=== PATIENT | female | born 2000 | race Caucasian/White ===

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

== ENCOUNTER → 2022-01-04 | Outpatient (CLI) | payer BC ==
--- NOTE | 2022-01-04 17:29 | P.PN ---
Subjective DATE: 01/04/2022 TELEMEDICINE FOLLOW UP VISIT. Telemedicine appointment have been done for follow-up patient with possible narcolepsy. Previously multiple sleep latency test short mean sleep latency 7.1 minutes with 3 sleep onset REM periods. About 2 months ago patient was started on treatment with the Adderall 5 mg in the morning and early afternoon. Patient feels very minimal effect from that dose of Adderall. No any side effects. I discussed with patient plan to increase his dose of Adderall to 10 mg twice a day. . MEDICATIONS:1. Adderall 5 mg twice a day 2. Pantoprazole 3. control pills Impressions: 1. Narcolepsy 2. History of headaches. 3. History of sinusitis. Plan: 1. Patient will continue treatment with Adderall, dose will be increased to 10 mg at 8 AM and 1 PM 2. Sleep hygiene with regular time in bed for at least 8 hours. 3. Daytime naps permitted 4. Precautions related to driving. No driving if feel any sleepiness. Patient is aware about civil and criminal liability for unsafe driving, promised to follow recommendations. 5. Follow up visit in 1 months or earlier if patient has any problems. Thank you very much for allowing me to participate in the management of your patient. Roberto Hannah MD, PhD, FAASM. Diplomat of [place] Board of Sleep Medicine, Sleep Medicine Board by [employer] Board of Internal Medicine Fire Equipment Repairer Inspector of [facility] [place]
== END ==
LOC: SLEEP 17:14
PROVIDERS: ATTEND Internal Medicine
DX: G47.33 Obstructive sleep apnea (adult) (pediatric) (principal); G47.419 Narcolepsy without cataplexy; Z86.69 Personal history of other diseases of the nervous system and sense organs; Z87.09 Personal history of other diseases of the respiratory system

== ENCOUNTER → 2022-08-23 | Outpatient (CLI) | payer BC ==
--- NOTE | 2022-08-23 16:52 | P.PN ---
Subjective DATE: 08/23/2022 FOLLOW UP VISIT. Patient returned to sleep center for follow-up visit related to treatment of significant excessive daytime sleepiness secondary to narcolepsy. Presently patient is on treatment with Adderall 10 mg twice a day. Patient feels better but she still feels sleepiness sometimes during the day. [place] Sleepiness Scale today is slightly increased to 13 . MEDICATIONS:1. Adderall 10 mg twice a day 2. Altavera During physical exam: GENERAL: A pleasant patient without any distress. VITAL SIGNS: BP 150/88, HR 87, RR 12 , weight 132.8, temperature 98.2, oxygen saturation at room air 100% . HEENT: PERRLA, EOMI. NECK: Supple. No JVD. LUNGS: Clear to percussion and to auscultation. Good air exchange. No wheezing or rhonchi. HEART: S1, S2 regular. ABDOMEN: Soft and nontender. EXTREMITIES: No clubbing or cyanosis. MEDICAL DELIVERY DRIVER: Awake, alert, and oriented x3. No focal deficit. Impressions: 1. Narcolepsy 2. History of sinusitis. 3. History of headaches. Plan: 1. Patient will continue treatment with Adderall 10 mg. Dose will be increased to 3 tablets a day. 2. Sleep hygiene with regular time in bed for at least 8 hours. 3. Daytime naps permitted 4. Precautions related to driving. No driving if feel any sleepiness. Patient is aware about civil and criminal liability for unsafe driving, promised to follow recommendations. 5. Follow up visit in 4-6 months or earlier if patient has any problems. Thank you very much for allowing me to participate in the management of your patient. Roberto Hannah MD, PhD, FAASM. Diplomat of [place] [employer] of Sleep Medicine, Sleep Medicine Board by [place] [employer] of Internal Medicine Judo Teacher of [facility] [place]
== END ==
LOC: 3 N SLEEP 16:11
PROVIDERS: ATTEND Internal Medicine
DX: G47.419 Narcolepsy without cataplexy (principal); J01.80 Other acute sinusitis; Z86.69 Personal history of other diseases of the nervous system and sense organs
CPT/HCPCS: 99212

== ENCOUNTER → 2023-02-19 | Outpatient (CLI) | payer BC ==
--- NOTE | 2023-02-19 16:49 | P.PN ---
Subjective DATE: 02/19/2023 FOLLOW UP VISIT. Patient returned to sleep center for follow-up visit related to treatment of significant excessive daytime sleepiness secondary to narcolepsy. Presently patient is on treatment with Adderall 15 mg twice a day. With this regimen after taking medication patient feels better but only for about 1-2 hours and then feels sleepiness again. No any side effects of medication. . [place] sleepiness scale is increased to 13. MEDICATIONS:1. Adderall 15 mg twice a day 2. Altavera During physical exam: GENERAL: A pleasant patient without any distress. VITAL SIGNS: BP 139/82, HR 82, RR 12 , weight 143.6, temperature 98.1, oxygen saturation at room air 99% . HEENT: PERRLA, EOMI. NECK: Supple. No JVD. LUNGS: Clear to percussion and to auscultation. Good air exchange. No wheezing or rhonchi. HEART: S1, S2 regular. ABDOMEN: Soft and nontender. EXTREMITIES: No clubbing or cyanosis. CUFF SETTER OVERLOCK: Awake, alert, and oriented x3. No focal deficit. Impressions: 1. Narcolepsy 2. History of sinusitis. 3. History of headaches. Plan: 1. Patient will continue treatment with Adderall dose will be increased to 20 mg twice a day. 2. Sleep hygiene with regular time in bed for at least 8 hours. 3. Daytime naps permitted 4. Precautions related to driving. No driving if feel any sleepiness. Patient is aware about civil and criminal liability for unsafe driving, promised to follow recommendations. 5. Follow up visit in 2 months or earlier if patient has any problems. Thank you very much for allowing me to participate in the management of your patient. Roberto Hannah MD, PhD, FAASM. Diplomat of [place] Board of Sleep Medicine, Sleep Medicine Board by [place] Board of Internal Medicine Bingo Checker of [facility] [place]
== END ==
LOC: 3 N SLEEP 15:34
PROVIDERS: ATTEND Internal Medicine
DX: G47.419 Narcolepsy without cataplexy (principal); J32.9 Chronic sinusitis, unspecified; Z86.69 Personal history of other diseases of the nervous system and sense organs
CPT/HCPCS: 99212

== ENCOUNTER → 2023-05-02 | Outpatient (CLI) | payer BC ==
--- NOTE | 2023-05-02 11:28 | P.PN ---
Subjective DATE: Nh 05/02/2023 FOLLOW UP VISIT. Patient returned to sleep center for follow-up visit related to treatment of significant excessive daytime sleepiness secondary to narcolepsy. Presently patient is on treatment with Adderall 20 mg up to 2 times a day.. This regimen patient alertness is on control, but after taking medication patient has no appetite and has episodes on during conversation with other people she doesn't want to listen them and just talk. Previously on the dose of Adderall 15 mg there was no side effects, but medication or only for about 1-1/2 hours, which was not enough. . [place] sleepiness scale is 14. MEDICATIONS:1. Adderall 20 mg twice a day 2. Altavera with control pills During physical exam: GENERAL: A pleasant patient without any distress. VITAL SIGNS: BP 122/85, HR 88, RR 16, weight 138, temperature 98.2, oxygen saturation at room air 100%. HEENT: PERRLA, EOMI. NECK: Supple. No JVD. LUNGS: Clear to percussion and to auscultation. Good air exchange. No wheezing or rhonchi. HEART: S1, S2 regular. ABDOMEN: Soft and nontender. EXTREMITIES: No clubbing or cyanosis. EXHIBIT TECHNICIAN: Awake, alert, and oriented x3. No focal deficit. Impressions: 1. Narcolepsy 2. History of sinusitis. 3. History of headaches. Plan: 1. Patient will continue treatment with Adderall extended release 15 mg once a day. 2. Sleep hygiene with regular time in bed for at least 8 hours. 3. Daytime naps permitted 4. Precautions related to driving. No driving if feel any sleepiness. Patient is aware about civil and criminal liability for unsafe driving, promised to follow recommendations. 5. Follow up visit in 1 months or earlier if patient has any problems. Thank you very much for allowing me to participate in the management of your patient. Roberto Hannah MD, PhD, FAASM. Diplomat of [place] Board of Sleep Medicine, Sleep Medicine Board by [place] Board of Internal Medicine Munitions Worker of [facility] [place]
== END ==
LOC: 3 N SLEEP 10:36
PROVIDERS: ATTEND Internal Medicine
DX: G47.419 Narcolepsy without cataplexy (principal); Z87.09 Personal history of other diseases of the respiratory system; Z86.69 Personal history of other diseases of the nervous system and sense organs

== ENCOUNTER → 2023-06-06 | Outpatient (CLI) | payer BC ==
--- NOTE | 2023-06-06 17:49 | P.PN ---
Subjective DATE: 06/06/2023 TELEMEDICINE FOLLOW UP VISIT. Telemedicine follow-up appointment was done for follow-up patient with significant excessive daytime sleepiness secondary to narcolepsy. Presently patient is in [facility], which is far from location of [facility]. History of possible side effects while patient take regular Adderall 20 mg twice a day with the losing appetite and talking without paying attention to other people. Medication was changed to extended release Adderall 15 mg. Patient is using Adderall 15 mg extended release once a day for 1 month. With this medication patient does not have any side effects, but feels sleepiness during the day. MEDICATIONS: 1. Adderall 15 mg extended release once a day 2. Altavera control pills. Impressions: 1. Narcolepsy 2. History of sinusitis. 3. History of headaches. Plan: 1. Patient will continue treatment with Adderall extended release, dose will be increased to 20 mg once a day. 2. Sleep hygiene with regular time in bed for at least 8 hours. 3. Daytime naps permitted 4. Precautions related to driving. No driving if feel any sleepiness. Patient is aware about civil and criminal liability for unsafe driving, promised to follow recommendations. 5. Follow up visit in 1-2 months or earlier if patient has any problems. Thank you very much for allowing me to participate in the management of your patient. Roberto Hannah MD, PhD, FAASM. Diplomat of [place] Board of Sleep Medicine, Sleep Medicine Board by [place] Board of Internal Medicine Rate Setter of [facility] [place]
== END ==
LOC: 3 N SLEEP 17:22
PROVIDERS: ATTEND Internal Medicine
DX: G47.419 Narcolepsy without cataplexy (principal); Z86.69 Personal history of other diseases of the nervous system and sense organs; Z87.09 Personal history of other diseases of the respiratory system
CPT/HCPCS: 99212

== ENCOUNTER → 2023-08-08 | Outpatient (CLI) | payer BC ==
--- NOTE | 2023-08-24 22:52 | CE ---
CARDIAC ELECTROPHYSIOLOGY REPORT STUDY: 7 days event monitor. Referring physician not listed. INDICATIONS: Rule out cardiac arrhythmia. FINDINGS: The patient was monitored for 7 days. The baseline rhythm appeared to be sinus mechanism. The patient did have multiple PACs with a PAC percent of only 1%. No PVCs noted. No significant sinus pause or sinus arrest. No diary was attached CONCLUSION: 1. Sinus rhythm as a baseline mechanism. 2. Rare PACs noted. 3. No PVCs noted. 4. No sinus pause or sinus arrest. 5. No SVT or atrial fibrillation. 6. No diary was attached to the study. MMODL / IJN: [id number] /
== END | disposition home or self-care (01) ==
LOC: RADECHMAIN 07:31
PROVIDERS: ATTEND Family Medicine
DX: R00.2 Palpitations (principal)
CPT/HCPCS: 93270

== ENCOUNTER → 2024-08-14 | Outpatient (CLI) | payer BC ==
--- NOTE | 2024-08-14 08:02 | US ---
EXAMINATION TYPE: US gallbladder DATE OF EXAM: 08/14/2024 COMPARISON: MD 2018 CLINICAL INDICATION: Female, 24 years old with history of R10.11 RIGHT UPPER QUADRANT PAIN; RUQ pain TECHNIQUE: Grayscale and color Doppler imaging of the right upper quadrant. FINDINGS: EXAM MEASUREMENTS: Liver Length: 16.3 cm Gallbladder Wall: 0.21 cm CBD: 0.56 cm, color Doppler imaging was utilized to isolate the common bile duct for measurement. Right Kidney: 10.5 x 6.3 x 4.2 cm TILLER MAN NOTES: Exam is limited due to gas Pancreas: *Not well seen Liver: *Hyperechoic area seen right lobe: 1.8 x 1.8 x 1.3 cm. Gallbladder: Appears anechoic Evidence for sonographic Long's sign: No CBD: Measures upper limits Right Kidney: No hydronephrosis or masses seen IMPRESSION: 1. No evidence of acute process. 2. Hyperechoic lesion in the liver which is indeterminate but likely benign in the absence of risk f actors given patient's age such as a hemangioma. Consider MRI liver mass protocol for further charact erization. [facility], , 08/14/2024 7:59 AM
== END | disposition home or self-care (01) ==
LOC: RADUSWWP 07:06
PROVIDERS: ATTEND Surgery Plastic and Reconstructive Surgery
DX: K76.9 Liver disease, unspecified (principal)
CPT/HCPCS: 76705

== ENCOUNTER 2024-08-27 07:05 | Day surgery (SDC) | payer BC, OTHER ==
[2024-08-25 16:33] VITALS: BMI 25.6
[2024-08-27 07:56] VITALS: RESP 16; TEMP 98.4
[2024-08-27] MEDS: LACTATED RINGERS 1,000 ML IV SCH (07:57)
[2024-08-27] MEDS: LIDOCAINE 1% (10MG/ML) FOR IV START INTRADERMA STA (07:57)
[2024-08-27] MEDS: IV FLUID CONTINUATION 1,000 ML IV ONE (07:58)
[2024-08-27] MEDS ORDERED: PROPOFOL 10 MG/ML 20 ML VIAL IV ONE (08:25)
[2024-08-27] MEDS ORDERED: LIDOCAINE 2% (PF) 20 MG/ML 5 ML VIAL ONE (08:25)
--- NOTE | 2024-08-27 08:34 | P.GSHP ---
History of Present Illness H&P Date: 08/27/24 CHIEF COMPLAINT: GERD and dysphagia HISTORY OF PRESENT ILLNESS: The patient is a 24-year-old female who presents reports gastroesophageal reflux disease and dysphagia. Upper endoscopy was offered for further evaluation and management. PAST MEDICAL HISTORY: Please see list. PAST SURGICAL HISTORY: Please see list. MEDICATIONS: Please see list. ALLERGIES: Please see list. SOCIAL HISTORY: No illicit drug use FAMILY HISTORY: No reports of Crohn disease or ulcerative colitis. REVIEW OF ORGAN SYSTEMS: CONSTITUTIONAL: No reports of fevers or chills. GI: Denies any blood in stools or constipation. PHYSICAL EXAM: VITAL SIGNS: Stable GENERAL: Well-developed and pleasant in no acute distress. HEENT: No scleral icterus. Extraocular movements grossly intact. Moist buccal mucosa. NECK: Supple without lymphadenopathy. CHEST: Unlabored respirations. Equal bilateral excursions. CARDIOVASCULAR: Regular rate and rhythm. Distal 2+ pulses. ABDOMEN: Soft, nondistended. MUSCULOSKELETAL: No clubbing, cyanosis, or edema. ASSESSMENT: 1. Gastroesophageal reflux disease 2. Dysphagia PLAN: 1. Recommend proceeding with an upper endoscopy Past Medical History Past Medical History: GERD/Reflux, Neurologic Disorder Additional Past Medical History / Comment(s): MIGRAINES. NARCOLEPSY History of Any Multi-Drug Resistant Organisms: None Reported Past Surgical History: Tonsillectomy Additional Past Surgical History / Comment(s): wisdom teeth Past Anesthesia/Blood Transfusion Reactions: No Reported Reaction Smoking Status: Never smoker - Past Family History Mother History Unknown: Yes Family Medical History: No Reported History Medications and Allergies Home Medications Medication Instructions Recorded Confirmed Type Baclofen 10 mg PO HS 08/25/24 08/25/24 History Lisdexamfetamine Dimesylate 40 mg PO QAM 08/25/24 08/25/24 History [Vyvanse] Allergies Allergy/AdvReac Type Severity Reaction Status Date / Time No Known Allergies Allergy Verified 08/25/24 16:21 Surgical - Exam Vital Signs Temp Pulse Resp BP Pulse Ox 98.4 F 74 16 135/86 100 08/27/24 07:54 08/27/24 07:54 08/27/24 07:54 08/27/24 07:54 08/27/24 07:54
--- NOTE | 2024-08-27 09:01 | P.PCN ---
Date of Procedure: 08/27/24 Description of Procedure: PREOPERATIVE DIAGNOSIS: Gastroesophageal reflux disease. Nausea Dysphagia POSTOPERATIVE DIAGNOSIS: Gastroesophageal reflux disease. Gastritis. OPERATION: Esophagogastroduodenoscopy with cold forceps biopsies along esophagus, antrum and duodenum SURGEON: Leonie Troy MD ANESTHESIA: MAC. INDICATIONS: The patient is a 24-year-old female who presents with nausea, dysphagia and reflux disease. Benefits and risks of the procedure were described. Informed consent was obtained. DESCRIPTION: The patient was brought into the endoscopy suite and laid in the left lateral decubitus position. An Olympus gastroscope was passed along the posterior oropharynx down to the distal esophagus where the squamocolumnar junction was encountered at 35 cm from the incisors. The stomach was entered and no bile reflux was found. Additional findings are listed below. Biopsies with cold forceps were obtained of the antrum. The first through third portion of the duodenum was examined. Retroflexion of the scope confirmed Hill grade 2 lower esophageal valve. The squamocolumnar junction demonstrated LA grade B erosive esophagitis. The stomach was desufflated. The patient tolerated the procedure well. FINDINGS: Squamocolumnar junction 35 cm from the incisors. Diaphragmatic hiatus at 35 cm. Hill grade 2 lower esophageal valve. LA grade B erosive esophagitis. Biopsies obtained Biopsies obtained of the duodenum. Chronic gastritis with biopsies obtained. RECOMMENDATIONS: Upper endoscopy as needed. Plan - Discharge Summary Discharge Rx Participant: No New Discharge Prescriptions: New Omeprazole [PriLOSEC] 40 mg PO DAILY #14 cap Continue Lisdexamfetamine Dimesylate [Vyvanse] 40 mg PO QAM Baclofen 10 mg PO HS Discharge Medication List Baclofen 10 mg PO HS 08/25/24 [History] Lisdexamfetamine Dimesylate [Vyvanse] 40 mg PO QAM 08/25/24 [History] Omeprazole [PriLOSEC] 40 mg PO DAILY #14 cap 08/27/24 [Rx] Follow up Appointment(s)/Referral(s): Leonie Troy MD [STAFF PHYSICIAN] - 09/09/24 11:30 am Patient Instructions/Handouts: GERD (Gastroesophageal Reflux Disease) (DC) Discharge Disposition: HOME SELF-CARE
[2024-08-27 09:09] VITALS: BP 119/80; PULSE 83
== END 2024-08-27 09:39 | disposition home or self-care (01) ==
LOC: ORWHC2ENDO 07:05
PROVIDERS: ATTEND Surgery Plastic and Reconstructive Surgery
DX: K29.50 Unspecified chronic gastritis without bleeding (principal); K21.00 Gastro-esophageal reflux disease with esophagitis, without bleeding; F90.9 Attention-deficit hyperactivity disorder, unspecified type; G47.419 Narcolepsy without cataplexy; Z90.89 Acquired absence of other organs; Z79.899 Other long term (current) drug therapy
CPT/HCPCS: 81025; 88305; 43239; J2704; J2003

== ENCOUNTER → 2024-09-24 | Outpatient (CLI) | payer BC ==
--- NOTE | 2024-09-24 09:42 | NM ---
EXAMINATION TYPE: NM hepatobiliary w EF DATE OF EXAM: 09/24/2024 COMPARISON: NONE INDICATION: TECHNIQUE: After the intravenous administration of 4.76 mCi Tc 99m Mebrofenin hepatobiliary scintigra phy is performed. Images were obtained immediately post injection. FINDINGS: There is prompt uptake and excretion of radiotracer by the liver. Extrahepatic ducts are identified at 1 minutes. The gallbladder is visualized within 4 minutes. Small bowel activity is noted within a minutes. At one hour 8 ounces of oral ensure plus is given to mimic CCK and gallbladder ejection fraction is c alculated at 84 %, which is elevated. (Normal >35% and <80%.). IMPRESSION: 1. Correlate for biliary hyperkinesia. [facility], Workstation: [facility], 09/24/2024 9:40 AM
== END | disposition home or self-care (01) ==
LOC: RADNMMAIN 06:51
PROVIDERS: ATTEND Surgery Plastic and Reconstructive Surgery
DX: R10.11 Right upper quadrant pain (principal)
CPT/HCPCS: 78226; A9537